=== PATIENT | male | born 1960 | race African-American/Black ===

== ENCOUNTER 2017-04-19 17:01 | Emergency (ER) | payer MEDICAID ==
[~2017-04-19] VITALS: Ht 170.2 cm; Wt 102.3 kg
[~2017-04-19 17:01] MED LIST: CITRACAL ECONO200 MG PO; GLUCOPHAGE500 MG/TAB; GLUMETZA500 MG PO; HYGROTON 2525 MG/TAB PO; INDOMETHACIN PO; K-DUR 10 MEQ T10 MEQ PO; LEVAQUIN 750MG750 M1 PO; LIPITOR 40MG TA40 MG PO; LISINOPRIL20 MG PO; LORTAB 5/500 501 TAB PO; MEN'S MULTIVITA1 TAB PO; NO HOME MEDICATIONS; NORCO 325 MG-51 TAB PO; OXYCODONE5 M1 PO; PREDNISONE20 MG PO; ROXICODONE 55 MG/TAB PO; blood pressure pill
[2017-04-19 17:06] VITALS: BP 158/82; PULSE 94; TEMP 98.2
[2017-04-19] MEDS ORDERED: DOXYCYCLINE 10100 MG PO (17:33)
== END 2017-04-19 17:42 | disposition home or self-care (01) ==
LOC: COL.ER 17:01
DX: L02.412 Cutaneous abscess of left axilla (principal); E11.9 Type 2 diabetes mellitus without complications; I10 Essential (primary) hypertension; F17.210 Nicotine dependence, cigarettes, uncomplicated; E78.00 Pure hypercholesterolemia, unspecified; Z79.84 Long term (current) use of oral hypoglycemic drugs

== ENCOUNTER 2017-09-10 13:44 | Emergency (ER) | payer MEDICAID ==
[~2017-09-10] VITALS: Ht 167.6 cm; Wt 102.3 kg
[~2017-09-10 13:44] MED LIST changes: +DOXYCYCLINE 10100 MG PO
[2017-09-10 13:48] VITALS: TEMP 97.8
[2017-09-10 17:07] LABS: COLLECTION METHOD CLEAN CATCH
[2017-09-10 17:08] LABS: BASO # 0.1 (0.0-0.2); BASO % 0.8 % (0.0-2.0); EOS # 0.1 (0.0-0.7); EOS % 1.3 % (0-4.0); GRAN # 2.9 (1.4-6.5); GRAN % 29.4 % (42.2-75.2); HEMATOCRIT 47.2 % (42.0-52.0); HEMOGLOBIN 16.9 g/dl (13.5-18.0); LYMPH # 5.4 (1.2-3.4); LYMPH % 54.3 % (20.0-51.0); MEAN CELL VOLUME 88 fl (80.0-100.0); MEAN CORPUSCULAR HEMOGLOBIN 31 pg (27.0-31.0); MEAN CORPUSCULAR HGB CONC 36 g/dl (33.0-37.0); MEAN PLATELET VOLUME 9.7 fl (7.4-10.4); MONO # 1.4 (0.1-0.6); PLATELET COUNT 252 K/mm3 (130-400); RED BLOOD COUNT 5.39 M/mm3 (4.20-5.60); REDCELL DISTRIBUTION WIDTH-CV 12.7 % (11.5-14.5)
[2017-09-10 17:13] LABS: MUCOUS Present /lpf; PH 5 (5-8); SQUAMOUS EPITHELIAL None Seen /hpf; URINE APPEARANCE Clear; URINE BACTERIA None Seen /hpf; URINE BILIRUBIN Negative (NEGATIVE); URINE BLOOD Negative (NEGATIVE); URINE COLOR Yellow; URINE GLUCOSE Negative (NEGATIVE); URINE KETONE Negative (NEGATIVE); URINE LEUKOCYTE ESTERASE Negative (NEGATIVE); URINE NITRATE Negative (NEGATIVE); URINE PROTEIN(semi-quant) Negative (NEGATIVE); URINE RBC 0-2 /hpf; URINE UROBILINOGEN Negative (NEGATIVE)
[2017-09-10 17:22] LABS: ALBUMIN 5.3 gm/dL (3.5-5.0); BILIRUBIN,TOTAL 0.5 mg/dL (0.0-1.0); C-REACTIVE PROTEIN 2.4 mg/dL (0.0-0.9); CALCIUM 10.3 mg/dL (8.4-10.2); CREATININE, serum 0.82 mg/dL (0.66-1.25); POTASSIUM 3.3 mmol/L (3.4-5.0)
[2017-09-10] MEDS ORDERED: ULTRAM 50MG TAB50 MG PO (17:35)
[2017-09-10 17:39] VITALS: BP 142/87
[2017-09-10 17:48] VITALS: PULSE 92
== END 2017-09-10 17:49 | disposition home or self-care (01) ==
LOC: COL.ER 13:44
PROVIDERS: Physician Assistant
DX: R10.9 Unspecified abdominal pain (principal); I10 Essential (primary) hypertension; E11.9 Type 2 diabetes mellitus without complications; Z79.84 Long term (current) use of oral hypoglycemic drugs
CPT/HCPCS: J2270

== ENCOUNTER 2018-05-28 11:10 | Emergency (ER) | payer MEDICAID ==
[~2018-05-28] VITALS: Ht 170.2 cm; Wt 116.4 kg
[~2018-05-28 11:10] MED LIST changes: +ULTRAM 50MG TAB50 MG PO
[2018-05-28 11:16] VITALS: BP 183/100
[2018-05-28] MEDS ORDERED: ZITHROMAX Z PA250 MG PO (13:30)
[2018-05-28 14:40] VITALS: PULSE 93; TEMP 98.7
== END 2018-05-28 14:40 | disposition home or self-care (01) ==
LOC: COL.ER 11:10
DX: J20.9 Acute bronchitis, unspecified (principal); E11.9 Type 2 diabetes mellitus without complications; Z79.84 Long term (current) use of oral hypoglycemic drugs
CPT/HCPCS: J0696; J7030

== ENCOUNTER 2018-07-30 17:11 | Emergency (ER) | payer MEDICAID ==
[~2018-07-30] VITALS: Ht 167.6 cm; Wt 126.8 kg
[~2018-07-30 17:11] MED LIST changes: +ZITHROMAX Z PA250 MG PO
[2018-07-30 17:15] VITALS: BP 198/103; TEMP 99.1
[2018-07-30] MEDS ORDERED: GLUCOPHAGE XR500 M1 PO (17:44)
[2018-07-30] MEDS ORDERED: VOLTAREN GEL 1%1 TU TP (17:59)
[2018-07-30] MEDS ORDERED: NORCO 325 MG-51 TAB PO (18:29)
[2018-07-30 18:40] VITALS: PULSE 92
== END 2018-07-30 18:40 | disposition home or self-care (01) ==
LOC: COL.ER 17:11
DX: G89.29 Other chronic pain (principal); M25.562 Pain in left knee; E11.9 Type 2 diabetes mellitus without complications; I10 Essential (primary) hypertension; F17.210 Nicotine dependence, cigarettes, uncomplicated; M10.9 Gout, unspecified; Z79.84 Long term (current) use of oral hypoglycemic drugs; Z88.6 Allergy status to analgesic agent

== ENCOUNTER → 2018-08-27 | Outpatient (CLI) | payer MEDICAID ==
[~2018-08-27] MED LIST changes: +GLUCOPHAGE XR500 M1 PO; +VOLTAREN GEL 1%1 TU TP
== END ==
LOC: COL.RAD 14:23
DX: M76.52 Patellar tendinitis, left knee (principal); M24.10 Other articular cartilage disorders, unspecified site

== ENCOUNTER → 2019-01-19 | Outpatient (CLI) | payer MEDICAID ==
[2019-01-19 15:34] LABS: ALBUMIN 4.7 gm/dL (3.5-5.0); BILIRUBIN,TOTAL 0.4 mg/dL (0.0-1.0); CALCIUM 10.5 mg/dL (8.4-10.2); CREATININE, serum 0.89 (0.66-1.25); POTASSIUM 3.4 mmol/L (3.4-5.0); TOTAL PROTEIN 8.5 gm/dL (6.4-8.2)
== END ==
LOC: COL.LAB 14:38
PROVIDERS: Family Medicine
DX: E11.9 Type 2 diabetes mellitus without complications (principal); I10 Essential (primary) hypertension; E78.5 Hyperlipidemia, unspecified

== ENCOUNTER → 2019-03-04 | Outpatient (CLI) | payer MEDICAID ==
[2019-03-04 17:43] LABS: CALCIUM 10.4 mg/dL (8.4-10.2); CREATININE, serum 0.8 (0.66-1.25); POTASSIUM 4.3 mmol/L (3.4-5.0)
== END ==
LOC: ZCOL.LAB 16:12
PROVIDERS: Family Medicine
DX: I10 Essential (primary) hypertension (principal); E83.52 Hypercalcemia

== ENCOUNTER → 2019-03-19 | Outpatient (CLI) | payer MEDICAID | LOC: COL.LAB 16:18 | DX: E83.52 Hypercalcemia (principal) ==

== ENCOUNTER 2019-04-05 08:53 | Emergency (ER) | payer MEDICAID ==
[~2019-04-05] VITALS: Ht 167.6 cm; Wt 113.6 kg
[2019-04-05 08:57] VITALS: TEMP 97.2
[2019-04-05] MEDS ORDERED: COZAAR 25MG25 MG/TAB PO (09:21)
[2019-04-05] MEDS ORDERED: XENICAL120 MG PO (09:22)
[2019-04-05 10:09] LABS: COLLECTION METHOD CLEAN CATCH
[2019-04-05 10:16] LABS: MUCOUS Present /lpf; PH 5 (5-8); SQUAMOUS EPITHELIAL None Seen /hpf; URINE APPEARANCE Clear; URINE BACTERIA None Seen /hpf; URINE BILIRUBIN Negative (NEGATIVE); URINE BLOOD 1+ (NEGATIVE); URINE COLOR Yellow; URINE GLUCOSE Negative (NEGATIVE); URINE KETONE Negative (NEGATIVE); URINE LEUKOCYTE ESTERASE Negative (NEGATIVE); URINE NITRATE Negative (NEGATIVE); URINE PROTEIN(semi-quant) 1+ (NEGATIVE); URINE RBC 0-2 /hpf; URINE UROBILINOGEN Negative (NEGATIVE)
[2019-04-05 10:21] LABS: BASO # 0.1 (0.0-0.2); BASO % 0.9 % (0.0-2.0); EOS # 0.1 (0.0-0.7); EOS % 0.9 % (0-4.0); GRAN % 55.6 % (42.2-75.2); HEMATOCRIT 42.2 % (42.0-52.0); HEMOGLOBIN 14.5 g/dl (13.5-18.0); LYMPH # 1.9 (1.2-3.4); MEAN CELL VOLUME 90 fl (80.0-100.0); MEAN CORPUSCULAR HEMOGLOBIN 31 pg (27.0-31.0); MEAN CORPUSCULAR HGB CONC 34 g/dl (33.0-37.0); MONO # 0.5 (0.1-0.6); MONO % 8.2 % (1.7-9.3); PLATELET COUNT 244 K/mm3 (130-400); RED BLOOD COUNT 4.67 M/mm3 (4.20-5.60); REDCELL DISTRIBUTION WIDTH-CV 12.8 % (11.5-14.5)
[2019-04-05 10:25] LABS: ALBUMIN 4.5 gm/dL (3.5-5.0); BILIRUBIN,TOTAL 0.3 mg/dL (0.0-1.0); C-REACTIVE PROTEIN 0.7 mg/dL (0.0-0.9); CALCIUM 9.3 mg/dL (8.4-10.2); CREATININE, serum 0.73 (0.66-1.25); POTASSIUM 4.1 mmol/L (3.4-5.0); TOTAL PROTEIN 7.7 gm/dL (6.4-8.2)
[2019-04-05] MEDS ORDERED: ZOFRAN ODT4 MG PO (11:14)
[2019-04-05 12:09] VITALS: BP 158/88; PULSE 78
== END 2019-04-05 12:14 | disposition home or self-care (01) ==
LOC: COL.ER 08:53
PROVIDERS: Physician Assistant
DX: R10.33 Periumbilical pain (principal); R19.7 Diarrhea, unspecified; R11.10 Vomiting, unspecified; I10 Essential (primary) hypertension; E78.5 Hyperlipidemia, unspecified; E11.9 Type 2 diabetes mellitus without complications; Z79.84 Long term (current) use of oral hypoglycemic drugs; Z87.891 Personal history of nicotine dependence
CPT/HCPCS: J2270; J2405; J7030

== ENCOUNTER 2019-04-24 11:49 | Emergency (ER) | payer MEDICAID ==
[~2019-04-24] VITALS: Ht 170.2 cm; Wt 113.6 kg
[~2019-04-24 11:49] MED LIST changes: +COZAAR 25MG25 MG/TAB PO; +XENICAL120 MG PO; +ZOFRAN ODT4 MG PO
[2019-04-24 11:55] VITALS: TEMP 96.5
[2019-04-24 13:14] LABS: BASO # 0.1 (0.0-0.2); BASO % 0.9 % (0.0-2.0); EOS # 0.1 (0.0-0.7); EOS % 2.3 % (0-4.0); GRAN # 2.1 (1.4-6.5); GRAN % 36.6 % (42.2-75.2); HEMATOCRIT 42.2 % (42.0-52.0); HEMOGLOBIN 14.6 g/dl (13.5-18.0); LYMPH # 2.9 (1.2-3.4); LYMPH % 49.8 % (20.0-51.0); MEAN CELL VOLUME 91 fl (80.0-100.0); MEAN CORPUSCULAR HEMOGLOBIN 32 pg (27.0-31.0); MEAN CORPUSCULAR HGB CONC 35 g/dl (33.0-37.0); MEAN PLATELET VOLUME 9.8 fl (7.4-10.4); MONO # 0.6 (0.1-0.6); MONO % 10.2 % (1.7-9.3); PLATELET COUNT 266 K/mm3 (130-400); RED BLOOD COUNT 4.64 M/mm3 (4.20-5.60); REDCELL DISTRIBUTION WIDTH-CV 13.1 % (11.5-14.5)
[2019-04-24 13:24] LABS: COLLECTION METHOD CLEAN CATCH
[2019-04-24 13:26] LABS: ALBUMIN 4.6 gm/dL (3.5-5.0); BILIRUBIN,TOTAL 0.3 mg/dL (0.0-1.0); C-REACTIVE PROTEIN 0.6 mg/dL (0.0-0.9); CALCIUM 9.6 mg/dL (8.4-10.2); CREATININE, serum 0.74 (0.66-1.25); POTASSIUM 4.1 mmol/L (3.4-5.0); TOTAL PROTEIN 8.1 gm/dL (6.4-8.2)
[2019-04-24 13:47] LABS: MUCOUS Present /lpf; PH 7 (5-8); SQUAMOUS EPITHELIAL 0-2 /hpf; URINE APPEARANCE Clear; URINE BACTERIA None Seen /hpf; URINE BILIRUBIN Negative (NEGATIVE); URINE BLOOD Negative (NEGATIVE); URINE COLOR Yellow; URINE GLUCOSE Negative (NEGATIVE); URINE KETONE Negative (NEGATIVE); URINE LEUKOCYTE ESTERASE Negative (NEGATIVE); URINE NITRATE Negative (NEGATIVE); URINE PROTEIN(semi-quant) Negative (NEGATIVE); URINE RBC 0-2 /hpf; URINE UROBILINOGEN Negative (NEGATIVE)
[2019-04-24] MEDS ORDERED: NORCO 325 MG-51 TAB PO (15:56)
[2019-04-24 16:10] VITALS: BP 136/90; PULSE 65
== END 2019-04-24 16:11 | disposition home or self-care (01) ==
LOC: COL.ER 11:49
PROVIDERS: Family Medicine
DX: K42.9 Umbilical hernia without obstruction or gangrene (principal); I10 Essential (primary) hypertension; E11.9 Type 2 diabetes mellitus without complications; Z79.84 Long term (current) use of oral hypoglycemic drugs
CPT/HCPCS: J1170; J2405; J7030; Q9967

== ENCOUNTER 2019-05-07 08:01 | Day surgery (SDC) | payer MEDICAID ==
[~2019-05-07] VITALS: Ht 170.2 cm; Wt 125.1 kg
[2019-05-07] VITALS (10 sets, daily range): BP systolic 114–165; BP diastolic 73–99; PULSE 85–104; TEMP 97.3–98.8
--- NOTE | 2019-05-07 09:59 | NUR ---
Patient is resting and was informed that surgery will be at 1200 since patient drank coffee with cream and sugar.
--- NOTE | 2019-05-07 10:21 | NUR ---
Eddie Mallory [employer] INSTALLER notified of elevated blood pressure and patient given own Losartan 25mg po.
[2019-05-07] MEDS ORDERED: ROXICODONE 55 MG/TAB PO (13:00)
--- NOTE | 2019-05-07 14:30 | NUR ---
Patient returns to room 7 per cart and arouses to verbal stimuli. IV fluids infusing and site is free of redness. Abdominal binder in place. Siderails up x2 and call light in reach. Sats 92% on 2L per nasal cannula. Temp 97.6. Taking few sips of water. Allowed to rest.
--- NOTE | 2019-05-07 14:45 | NUR ---
Resting and is sipping on water. Encouraged to take deep breaths.
--- NOTE | 2019-05-07 15:00 | NUR ---
Eating crackers and states that the incisional pain is becoming worse.
--- NOTE | 2019-05-07 15:00 | NUR ---
Continues to take sips of water. Spouse in room.
--- NOTE | 2019-05-07 15:15 | NUR ---
Eating crackers and complains of incisional pain. Rates pain at 10/10. States it hurts to move or laugh when talking to spouse.
--- NOTE | 2019-05-07 15:17 | NUR ---
Roxicodone 5mg po given for incisional pain. States that he is wanting to go home and see his dog.
--- NOTE | 2019-05-07 15:30 | NUR ---
Remains on oxygen to keep sats greater than 90%. Abdominal binder in place. IV fluids infusing.
--- NOTE | 2019-05-07 15:33 | NUR ---
Assisted ambulatory across the hallway to the bathroom with one person assist.
--- NOTE | 2019-05-07 15:40 | NUR ---
Voids and returns to room. Diaphoretic and light headed. Sats 88% on room air. Tense and voices concern about going home and caring for himself. States that he has stairs to go up to the bathroom and his bedroom. Sats up to 93% on 2L per nasal cannula.
--- NOTE | 2019-05-07 15:50 | NUR ---
Office called and received order for patient to spend the night. Continue same orders.
--- NOTE | 2019-05-07 16:00 | NUR ---
Resting on left side with pillow behind his back. Sats 94% on 2L per nasal cannula.
--- NOTE | 2019-05-07 16:25 | NUR ---
Report called to Brett GRANGER and patient transferred to room 325 per cart with belongings.
--- NOTE | 2019-05-07 16:50 | NUR ---
Patient transferred to room via cart from ambulatory services. Patient has been here for about 20mins at this time. He was able to stand and transfer to the bed but did not transfer well. He is unable to answer my questions clearly. Denies nausea but stated his pain is 8/10. He started shaking and became diaphoretic. Placed on oxygen at 2L/min, patient does not wear oxygen at home. He stated he can not take deep breaths. Explained where he is how the call light works. No other changes at this time. Call light within reach.
[2019-05-07 19:05] LABS: BASO # 0.1 (0.0-0.2); BASO % 0.8 % (0.0-2.0); EOS % 0.1 % (0-4.0); GRAN # 6.7 (1.4-6.5); GRAN % 73.8 % (42.2-75.2); HEMATOCRIT 43.3 % (42.0-52.0); HEMOGLOBIN 14.8 g/dl (13.5-18.0); LYMPH # 1.7 (1.2-3.4); LYMPH % 18.2 % (20.0-51.0); MEAN CELL VOLUME 92 fl (80.0-100.0); MEAN CORPUSCULAR HEMOGLOBIN 31 pg (27.0-31.0); MEAN CORPUSCULAR HGB CONC 34 g/dl (33.0-37.0); MEAN PLATELET VOLUME 10.3 fl (7.4-10.4); MONO # 0.6 (0.1-0.6); MONO % 6.8 % (1.7-9.3); PLATELET COUNT 266 K/mm3 (130-400); RED BLOOD COUNT 4.72 M/mm3 (4.20-5.60); REDCELL DISTRIBUTION WIDTH-CV 13.1 % (11.5-14.5)
[2019-05-07 19:15] LABS: CALCIUM 9.9 mg/dL (8.4-10.2); CREATININE, serum 0.82 (0.66-1.25); MAGNESIUM 1.8 mg/dL (1.6-2.3); POTASSIUM 4.2 mmol/L (3.4-5.0)
--- NOTE | 2019-05-07 20:39 | NUR ---
Patient assessment completed. A/o Sat up at side of bed. Still c/o severe abdominal pain where incision is. PRN morphine given per orders. Patient BP elevated. All evening meds given. Denies other needs at this time. Will continue to monitor pain and BP
[2019-05-08 04:11] VITALS: BP 138/75; PULSE 103; TEMP 98.4
--- NOTE | 2019-05-08 06:25 | NUR ---
Pt sleeping in bed. Call light within reach
--- NOTE | 2019-05-08 08:00 | NUR ---
Patient resting in bed at this time. Patient is alert and oriented, answers questions appropriately. Patient states that his pain is currently controlled. Patient is on 4L O2 via NC. Dressing on midline incision is intact with a small amount of drainage visible. Patient denies further needs at this time, call light within reach.
[2019-05-08 08:15] VITALS: BP 145/79; PULSE 112; TEMP 98.9
[2019-05-08 11:25] VITALS: BP 148/81; PULSE 100; TEMP 98
--- NOTE | 2019-05-08 11:33 | NUR ---
SW met with patient about DC. Patient plans to return home and lives independently. Patient reports that he and his are (Marbella) and she is his care support. Patient reports that she handles medications obtained from [facility] and helps with transportation. Patient reports that he needs help with obtaining a cane or walker as he is having trouble with his gait. PT was ordered awaiting assessment results. Patient denies knowing who his PCP is and states that he oftens uses a scooter at home. SW will continue to follow.
[2019-05-08 14:40] LABS: BASO % 0.5 % (0.0-2.0); EOS # 0.1 (0.0-0.7); EOS % 1.6 % (0-4.0); GRAN # 4.7 (1.4-6.5); GRAN % 54.9 % (42.2-75.2); HEMATOCRIT 41.4 % (42.0-52.0); HEMOGLOBIN 13.9 g/dl (13.5-18.0); LYMPH # 2.8 (1.2-3.4); LYMPH % 32.4 % (20.0-51.0); MEAN CELL VOLUME 92 fl (80.0-100.0); MEAN CORPUSCULAR HEMOGLOBIN 31 pg (27.0-31.0); MEAN CORPUSCULAR HGB CONC 34 g/dl (33.0-37.0); MEAN PLATELET VOLUME 10.2 fl (7.4-10.4); MONO # 0.9 (0.1-0.6); MONO % 10.4 % (1.7-9.3); PLATELET COUNT 244 K/mm3 (130-400); RED BLOOD COUNT 4.51 M/mm3 (4.20-5.60); REDCELL DISTRIBUTION WIDTH-CV 13.1 % (11.5-14.5)
[2019-05-08 14:53] LABS: CALCIUM 9.8 mg/dL (8.4-10.2); CREATININE, serum 0.85 (0.66-1.25); POTASSIUM 4.1 mmol/L (3.4-5.0)
[2019-05-08 15:36] VITALS: BP 117/85; PULSE 102; TEMP 98.2
--- NOTE | 2019-05-08 18:00 | NUR ---
O2 on per nasal cannula. Abdominal dressing CDI. Incisional pain improved with prn oral and IV meds. Ambulatory in room.
[2019-05-08 20:27] VITALS: BP 143/71; PULSE 102; TEMP 99.4
--- NOTE | 2019-05-08 21:45 | NUR ---
Patient doing ok. Pain control better than yesterday. Did request PRN morphine and was given. Resting in bed. Alert and oriented with VSS. No complaints at this time. Call light within reach, will continue to monitor
[2019-05-09 01:25] VITALS: BP 127/75; PULSE 111; TEMP 100.2
--- NOTE | 2019-05-09 03:20 | NUR ---
Patient resting in bed. Has temp of 100.2, had patient use IS. Rechecked and got temp of 98.1. Patient has no concerns at this time. Will continue to monitor
[2019-05-09 04:00] VITALS: BP 111/58; PULSE 98; TEMP 97.8
[2019-05-09 04:45] VITALS: BP 139/75; PULSE 95; TEMP 98.2
--- NOTE | 2019-05-09 06:17 | NUR ---
Attempted to trial patient off of o2. Sats were 88-89 without any oxygen. Trialed o2 with 2L, sats stayed in low 90's. Increased o2 back up to 4L
[2019-05-09 06:32] LABS: BASO % 0.5 % (0.0-2.0); EOS # 0.1 (0.0-0.7); EOS % 1.2 % (0-4.0); GRAN # 4.8 (1.4-6.5); GRAN % 58.1 % (42.2-75.2); HEMATOCRIT 39.8 % (42.0-52.0); HEMOGLOBIN 13.3 g/dl (13.5-18.0); LYMPH # 2.4 (1.2-3.4); LYMPH % 28.7 % (20.0-51.0); MEAN CELL VOLUME 92 fl (80.0-100.0); MEAN CORPUSCULAR HEMOGLOBIN 31 pg (27.0-31.0); MEAN CORPUSCULAR HGB CONC 33 g/dl (33.0-37.0); MEAN PLATELET VOLUME 10.3 fl (7.4-10.4); MONO # 0.9 (0.1-0.6); MONO % 11.3 % (1.7-9.3); PLATELET COUNT 232 K/mm3 (130-400); RED BLOOD COUNT 4.31 M/mm3 (4.20-5.60); REDCELL DISTRIBUTION WIDTH-CV 12.7 % (11.5-14.5)
[2019-05-09 06:52] LABS: CALCIUM 9.6 mg/dL (8.4-10.2); CREATININE, serum 0.81 (0.66-1.25); POTASSIUM 4.2 mmol/L (3.4-5.0)
[2019-05-09 07:36] VITALS: BP 145/86; PULSE 93; TEMP 98.1
--- NOTE | 2019-05-09 08:00 | NUR ---
Patient resting in bed at this time, patient rouses easily and is alert and oriented while awake. Patient reports pain in his abodmen that he rates at a 5/10, administered PRN pain medication per order. Gauze dressing on abdomen is clean, dry, and intact. Patient denies other needs at this time, call light within reach.
[2019-05-09 11:39] VITALS: BP 143/88; PULSE 87; TEMP 97.9
[2019-05-09] MEDS ORDERED: AMOXICILLIN 8751 TAB PO (11:55)
--- NOTE | 2019-05-09 14:06 | NUR ---
SW met with patient about needing 02 setup at home for the patient. SW made contact with [facility] at [facility] and faxed 02 orders toe [phone]. Awaiting on-call to provide a time that they will arrive with equipment.
[2019-05-09 15:44] VITALS: BP 122/70; PULSE 94; TEMP 98.3
--- NOTE | 2019-05-09 16:30 | NUR ---
Oxygen concentrator delivered by medical supply at approximately 1600. Discharge teaching complete. Reviewed discharge instructions, discussed follow up appointment times, dates, and rescheduling/cancel instructions; reinforced importance of keeping follow up appointments. Discussed wound care instructions, shower instructions, and causes for concern. Patient and verbalized understanding. Patient escorted to ER entrance via wheelchair by surgical staff. Patient assisted into private vehicle.
== END 2019-05-09 16:30 | disposition home or self-care (01) ==
LOC: SDCO 08:01 → SURG 16:45 → SDCO 05-09 16:30
PROVIDERS: Hospitalist
DX: K42.0 Umbilical hernia with obstruction, without gangrene (principal); E66.01 Morbid (severe) obesity due to excess calories; E11.9 Type 2 diabetes mellitus without complications; E78.00 Pure hypercholesterolemia, unspecified; I10 Essential (primary) hypertension; E78.5 Hyperlipidemia, unspecified; Z79.84 Long term (current) use of oral hypoglycemic drugs; Z88.8 Allergy status to other drugs, medicaments and biological substances; Z88.6 Allergy status to analgesic agent; Z68.37 Body mass index [BMI] 37.0-37.9, adult
CPT/HCPCS: OP; 99222; 99231-AI; 99239; A9284; C1781; J0690; J1170; J2250; J2270; J2405; J2704; J3010; J7120

== ENCOUNTER → 2019-06-17 | Outpatient (CLI) | payer MEDICAID ==
[~2019-06-17] MED LIST changes: +AMOXICILLIN 8751 TAB PO
[2019-06-17 17:20] LABS: CHOLESTEROL RISK RATIO 2.8
== END ==
LOC: ZCOL.LAB 15:54
PROVIDERS: Family Medicine
DX: Z12.5 Encounter for screening for malignant neoplasm of prostate (principal); E78.5 Hyperlipidemia, unspecified

== ENCOUNTER 2019-06-24 04:03 | Emergency (ER) | payer MEDICAID ==
[~2019-06-24] VITALS: Ht 167.6 cm; Wt 104.5 kg
[2019-06-24] MEDS ORDERED: DOXYCYCLINE 10100 MG PO (05:16)
[2019-06-24 05:46] VITALS: BP 122/99; PULSE 96; TEMP 98.4
== END 2019-06-24 05:53 | disposition home or self-care (01) ==
LOC: COL.ER 04:03
DX: J20.9 Acute bronchitis, unspecified (principal); E11.9 Type 2 diabetes mellitus without complications; I10 Essential (primary) hypertension; Z79.84 Long term (current) use of oral hypoglycemic drugs; Z87.01 Personal history of pneumonia (recurrent)

== ENCOUNTER 2019-08-20 13:14 | Emergency (ER) | payer MEDICAID ==
[~2019-08-20] VITALS: Ht 167.6 cm; Wt 104.5 kg
[2019-08-20 13:35] VITALS: BP 187/90; TEMP 99.4
[2019-08-20] MEDS ORDERED: TESSALON PERLE200 MG PO (15:09)
[2019-08-20 15:28] VITALS: PULSE 89
== END 2019-08-20 15:25 | disposition home or self-care (01) ==
LOC: COL.ER 13:14
DX: J11.1 Influenza due to unidentified influenza virus with other respiratory manifestations (principal); E11.9 Type 2 diabetes mellitus without complications; I10 Essential (primary) hypertension; E78.5 Hyperlipidemia, unspecified; Z79.84 Long term (current) use of oral hypoglycemic drugs; Z87.891 Personal history of nicotine dependence

== ENCOUNTER 2019-08-26 11:34 | Emergency (ER) | payer MEDICAID ==
[~2019-08-26] VITALS: Ht 170.2 cm; Wt 129.7 kg
[~2019-08-26 11:34] MED LIST changes: +TESSALON PERLE200 MG PO
[2019-08-26 11:39] VITALS: TEMP 97.4
[2019-08-26 12:19] LABS: BASO % 0.2 % (0.0-2.0); EOS # 0.2 (0.0-0.7); EOS % 2.4 % (0-4.0); GRAN # 4.6 (1.4-6.5); GRAN % 50.4 % (42.2-75.2); HEMATOCRIT 44.8 % (42.0-52.0); HEMOGLOBIN 15.4 g/dl (13.5-18.0); LYMPH # 3.3 (1.2-3.4); LYMPH % 35.9 % (20.0-51.0); MEAN CELL VOLUME 90 fl (80.0-100.0); MEAN CORPUSCULAR HEMOGLOBIN 31 pg (27.0-31.0); MEAN CORPUSCULAR HGB CONC 34 g/dl (33.0-37.0); MEAN PLATELET VOLUME 9.8 fl (7.4-10.4); MONO % 10.6 % (1.7-9.3); PLATELET COUNT 290 K/mm3 (130-400); RED BLOOD COUNT 4.96 M/mm3 (4.20-5.60); REDCELL DISTRIBUTION WIDTH-CV 13.1 % (11.5-14.5)
[2019-08-26 12:34] LABS: ALBUMIN 4.7 gm/dL (3.5-5.0); BILIRUBIN,TOTAL 0.4 mg/dL (0.0-1.0); C-REACTIVE PROTEIN 2.7 mg/dL (0.0-0.9); CALCIUM 9.8 mg/dL (8.4-10.2); CREATININE, serum 0.78 (0.66-1.25); POTASSIUM 4.1 mmol/L (3.4-5.0); TOTAL PROTEIN 8.7 gm/dL (6.4-8.2)
[2019-08-26] MEDS ORDERED: ZOFRAN ODT4 MG PO (13:45)
[2019-08-26 14:27] VITALS: BP 133/93; PULSE 92
== END 2019-08-26 14:28 | disposition home or self-care (01) ==
LOC: COL.ER 11:34
PROVIDERS: Physician Assistant
DX: R11.10 Vomiting, unspecified (principal); R19.7 Diarrhea, unspecified; R10.33 Periumbilical pain; I10 Essential (primary) hypertension; E11.9 Type 2 diabetes mellitus without complications; Z79.84 Long term (current) use of oral hypoglycemic drugs
CPT/HCPCS: C9113; J2270; J2405; J7030

== ENCOUNTER 2020-06-17 09:10 | Emergency (ER) | payer MEDICAID ==
[~2020-06-17] VITALS: Ht 167.6 cm; Wt 100.0 kg
[2020-06-17 09:14] VITALS: TEMP 98.5
[2020-06-17 09:58] VITALS: BP 140/80; PULSE 80
== END 2020-06-17 09:59 | disposition home or self-care (01) ==
LOC: COL.ER 09:10
DX: R10.9 Unspecified abdominal pain (principal); Z79.84 Long term (current) use of oral hypoglycemic drugs; Z88.6 Allergy status to analgesic agent; Z88.8 Allergy status to other drugs, medicaments and biological substances

== ENCOUNTER 2021-05-04 13:34 | Emergency (ER) | payer MEDICAID ==
[~2021-05-04] VITALS: Ht 170.2 cm; Wt 131.8 kg
[2021-05-04 15:09] VITALS: TEMP 99
[2021-05-04 16:43] LABS: BASO # 0.1 K/mm3 (0.0-0.2); BASO % 0.7 % (0.0-2.0); EOS # 0.1 K/mm3 (0.0-0.7); EOS % 1.8 % (0-4.0); GRAN # 3.1 K/mm3 (1.4-6.5); GRAN % 42.7 % (42.2-75.2); HEMATOCRIT 44.1 % (42.0-52.0); HEMOGLOBIN 14.9 g/dl (13.5-18.0); LYMPH # 3.2 K/mm3 (1.2-3.4); LYMPH % 44.6 % (20.0-51.0); MEAN CELL VOLUME 91 fl (80.0-100.0); MEAN CORPUSCULAR HEMOGLOBIN 31 pg (27.0-31.0); MEAN CORPUSCULAR HGB CONC 34 g/dl (33.0-37.0); MONO # 0.7 K/mm3 (0.1-0.6); MONO % 10.1 % (1.7-9.3); PLATELET COUNT 256 K/mm3 (130-400); RED BLOOD COUNT 4.83 M/mm3 (4.20-5.60); REDCELL DISTRIBUTION WIDTH-CV 12.9 % (11.5-14.5)
[2021-05-04 17:08] LABS: ALBUMIN 4.4 gm/dL (3.4-4.8); BILIRUBIN,TOTAL 0.3 mg/dL (0.2-1.2); CALCIUM 10.4 mg/dL (8.4-10.2); CREATININE, serum 1.07 mg/dL (0.72-1.25); TOTAL PROTEIN 8.4 gm/dL (6.2-8.1)
[2021-05-04 18:20] VITALS: BP 131/68; PULSE 80
== END 2021-05-04 18:20 | disposition home or self-care (01) ==
LOC: COL.ER 13:34
PROVIDERS: Personal Emergency Response Attendant
DX: R51.9 Headache, unspecified (principal); E11.9 Type 2 diabetes mellitus without complications; I10 Essential (primary) hypertension; E78.00 Pure hypercholesterolemia, unspecified; Z88.6 Allergy status to analgesic agent; Z87.891 Personal history of nicotine dependence; Z79.84 Long term (current) use of oral hypoglycemic drugs; Z79.899 Other long term (current) drug therapy
CPT/HCPCS: J0780; J2270; J2405; J7030

== ENCOUNTER 2021-11-18 11:52 | Emergency (ER) | payer MEDICAID ==
[~2021-11-18] VITALS: Ht 170.2 cm; Wt 127.3 kg
[2021-11-18 12:01] VITALS: TEMP 98.5
[2021-11-18] MEDS ORDERED: COZAAR100 MG PO (12:13)
[2021-11-18] MEDS ORDERED: ROXICODONE 55 MG/TAB PO (12:13)
[2021-11-18] MEDS ORDERED: NORVASC 10MG10 MG PO (12:14)
[2021-11-18] MEDS ORDERED: NORVASC 5MG5 MG/TAB PO (12:14)
[2021-11-18] MEDS ORDERED: TRIAMCINOLONE A15 G1 TP (12:14)
[2021-11-18] MEDS ORDERED: COZAAR 50MG50 MG/TAB PO (12:15)
[2021-11-18 12:35] LABS: BASO # 0.1 K/mm3 (0.0-0.2); BASO % 0.8 % (0.0-2.0); EOS # 0.1 K/mm3 (0.0-0.7); EOS % 1.8 % (0.0-4.0); GRAN # 2.7 K/mm3 (1.4-6.5); GRAN % 39.8 % (42.2-75.2); HEMATOCRIT 40.3 % (42.0-52.0); LYMPH # 3.1 K/mm3 (1.2-3.4); LYMPH % 46.2 % (20.0-51.0); MEAN CELL VOLUME 89 fl (80.0-100.0); MEAN CORPUSCULAR HEMOGLOBIN 31 pg (27-31); MEAN CORPUSCULAR HGB CONC 35 g/dl (33.0-37.0); MEAN PLATELET VOLUME 9.9 fl (7.4-10.4); MONO # 0.7 K/mm3 (0.1-0.6); MONO % 11.1 % (1.7-9.3); PLATELET COUNT 266 K/mm3 (130-400); RED BLOOD COUNT 4.52 M/mm3 (4.20-5.60); REDCELL DISTRIBUTION WIDTH-CV 13.2 % (11.5-14.5)
[2021-11-18 12:54] LABS: ALANINE AMINOTRANSFERASE 28 U/L (0-55); ALBUMIN 4.3 gm/dL (3.4-4.8); ALKALINE PHOSPHATASE 66 U/L (40-150); ANION GAP 13 mmol/L (7-16); AST,SGOT 24 U/L (5-34); BILIRUBIN,TOTAL 0.4 mg/dL (0.2-1.2); BLOOD UREA NITROGEN 14 mg/dL (8-26); CALCIUM 9.8 mg/dL (8.4-10.2); CARBON DIOXIDE 22 mmol/L (23-31); CHLORIDE 107 mmol/L (98-107); CREATININE, serum 0.91 mg/dL (0.72-1.25); GLUCOSE 99 mg/dL (70-99); SODIUM 142 mmol/L (136-145)
[2021-11-18 13:00] LABS: TROPONIN-I < 0.010 ng/mL (0.00-0.033)
[2021-11-18 13:21] VITALS: BP 125/97; PULSE 72
== END 2021-11-18 13:22 | disposition home or self-care (01) ==
LOC: COL.ER 11:52
PROVIDERS: Emergency Medicine
DX: R42 Dizziness and giddiness (principal); R19.7 Diarrhea, unspecified
CPT/HCPCS: J7030

== ENCOUNTER 2022-01-09 19:03 | Emergency (ER) | payer MEDICAID ==
[~2022-01-09] VITALS: Ht 170.2 cm; Wt 127.3 kg
[~2022-01-09 19:03] MED LIST changes: +COZAAR 50MG50 MG/TAB PO; +COZAAR100 MG PO; +NORVASC 10MG10 MG PO; +NORVASC 5MG5 MG/TAB PO; +TRIAMCINOLONE A15 G1 TP
[2022-01-09 19:11] VITALS: TEMP 99
[2022-01-09 19:41] VITALS: BP 136/94; PULSE 86
== END 2022-01-09 19:41 | disposition home or self-care (01) ==
LOC: COL.ER 19:03
DX: S61.012A Laceration without foreign body of left thumb without damage to nail, initial encounter (principal); X58.XXXA Exposure to other specified factors, initial encounter

== ENCOUNTER 2022-01-18 10:08 | Day surgery (SDC) | payer MEDICAID ==
[~2022-01-18] VITALS: Ht 170.2 cm; Wt 125.7 kg
[2022-01-18 10:35] VITALS: BP 125/76; PULSE 71; TEMP 97.2
[2022-01-18 11:45] VITALS: BP 117/64; PULSE 85; TEMP 98
[2022-01-18 12:00] VITALS: BP 120/87; PULSE 74
[2022-01-18 12:15] VITALS: BP 129/83; PULSE 68
--- NOTE | 2022-01-18 12:20 | NUR ---
1145 AWAKE, ALERT. WALKS FROM CART TO RECLINER CHAIR WITH STAND BY ASSIST. FEET ELEVATED. DENIES NUSEA OR ABD PAIN. 1153 DR. ELLER HERE TO VISIT WITH PATIENT. 1155 TOLERATES PO JUICE WITHOUT NAUSEA. REFUSES SNACK. 1210 DENIES PAIN OR NAUSEA. DISCHARGE INSTRUCTIONS REVIEWED. PATIENT VERBALIZES UNDERSTANDING. COPY OF INSTRUCTIONS AND EDUCATIONAL MATERIALS PLACED IN [employer]DER.
== END 2022-01-18 12:20 | disposition home or self-care (01) ==
LOC: SDCO 10:08
DX: Z12.11 Encounter for screening for malignant neoplasm of colon (principal); D12.3 Benign neoplasm of transverse colon; K63.5 Polyp of colon; K62.1 Rectal polyp
CPT/HCPCS: J2704; J7120

== ENCOUNTER → 2022-09-10 | Outpatient (CLI) | payer MEDICAID | LOC: COL.RAD 07:24 | DX: I65.23 Occlusion and stenosis of bilateral carotid arteries (principal); I25.10 Atherosclerotic heart disease of native coronary artery without angina pectoris | CPT/HCPCS: Q9967 ==

== ENCOUNTER → 2024-02-12 | Outpatient (CLI) | payer MEDICAID ==
[~2024-02-12] MED LIST changes: +Iohexol 300 - 10 ML VIAL ONE; +Lidocaine PF 2% (20 MG/ML) 2 ML VIAL ONE
== END ==
LOC: MHCPAIN 11:09
DX: M54.16 Radiculopathy, lumbar region (principal)
CPT/HCPCS: J1100; Q9967

== ENCOUNTER → 2024-03-23 | Outpatient (CLI) | payer MEDICAID ==
[~2024-03-23] MED LIST changes: -Iohexol 300 - 10 ML VIAL ONE; -Lidocaine PF 2% (20 MG/ML) 2 ML VIAL ONE
== END ==
LOC: MHCPAIN 09:34
DX: M47.816 Spondylosis without myelopathy or radiculopathy, lumbar region (principal); M48.061 Spinal stenosis, lumbar region without neurogenic claudication; M54.50 Low back pain, unspecified; E11.42 Type 2 diabetes mellitus with diabetic polyneuropathy; Z79.84 Long term (current) use of oral hypoglycemic drugs; I10 Essential (primary) hypertension; E66.9 Obesity, unspecified; Z79.891 Long term (current) use of opiate analgesic
CPT/HCPCS: G0463